=== PATIENT | male | born 1980 | race African-American/Black ===

== ENCOUNTER 2025-03-18 18:44 | Emergency (ER) | payer OTHER ==
[~2025-03-18] VITALS: Ht 188 cm; Wt 102.5 kg
[2025-03-18] MEDS ORDERED: KETOROLAC TROMETHAMINE 15 MG/ML VIAL ONE (18:56)
[2025-03-18] MEDS: IV NS 0.9% 1,000 ML BAG IV ONE (19:07)
[2025-03-18] MEDS: KETOROLAC TROMETHAMINE 15 MG/ML VIAL IV ONE (19:08)
[2025-03-18] MEDS ORDERED: ACETAMINOPHEN ES 500 MG TABLET ONE (19:27)
[2025-03-18 19:40] LABS: PLATELET COUNT (AUTO) 272 K/uL (150-450); RED BLOOD CELL COUNT(AUTO) 4.44 MIL/uL (4.5-6.0); RED CELL DISTRIBUTION WIDTH 14.8 % (11.5-15.0); WHITE BLOOD COUNT (AUTO) 10.3 K/uL (4.3-11.0)
[2025-03-18] MEDS: ACETAMINOPHEN ES 500 MG TABLET PO ONE (19:55)
[2025-03-18 19:56] LABS: CALCIUM, SERUM 8.6 mg/dL (8.5-10.1); CREATININE 1.1 mg/dL (0.6-1.3); SODIUM SERUM 141.0 mmol/L (136-145); UREA NITROGEN, BLOOD 10.0 mg/dL (7-18)
[2025-03-18 20:02] LABS: ALCOHOL, BLOOD 22.0 mg/dL (0-10); ASPARTATE AMINOTRANSFERASE 53.0 U/L (15-37); TOTAL PROTEIN, SERUM 6.9 g/dL (6.4-8.2)
[2025-03-18] MEDS ORDERED: ONDANSETRON HCL/PF 4 MG/2 ML VIAL ONE (20:30)
[2025-03-18] MEDS ORDERED: MORPHINE SULFATE INJ 4 MG/ML DISP.SYRIN ONE (20:30)
[2025-03-18] MEDS: ONDANSETRON HCL/PF 4 MG/2 ML VIAL IVP ONE (20:31)
[2025-03-18] MEDS: MORPHINE SULFATE INJ 2 MG/ML DISP.SYRIN IV ONE (20:31)
[2025-03-18 20:55] VITALS: BP 122/78; TEMP 99; O2SAT 95
== END 2025-03-18 20:56 | disposition home or self-care (01) ==
LOC: ER 18:44
DX: S30.0XXA Contusion of lower back and pelvis, initial encounter (principal); J11.1 Influenza due to unidentified influenza virus with other respiratory manifestations; Z20.822 Contact with and (suspected) exposure to COVID-19; X58.XXXA Exposure to other specified factors, initial encounter; Y93.89 Activity, other specified; Y92.89 Other specified places as the place of occurrence of the external cause; Y99.8 Other external cause status
CPT/HCPCS: 99285; 96374; 96361; 96375; 93005; 87804 ×2; 71045; 85025; 80048; 80076; 36415; 87426; 80320; J2270; J2405; J7030; J1885; G0480

== ENCOUNTER 2025-07-04 12:37 | Emergency (ER) | payer OTHER ==
[~2025-07-04] VITALS: Ht 188 cm; Wt 99.8 kg
[2025-07-04] MEDS ORDERED: ONDANSETRON HCL/PF 4 MG/2 ML VIAL ONE (13:03)
[2025-07-04] MEDS ORDERED: MORPHINE SULFATE INJ 4 MG/ML DISP.SYRIN ONE (13:04)
[2025-07-04] MEDS: IV NS 0.9% 500 ML BAG IV ONE (13:10)
[2025-07-04] MEDS: MORPHINE SULFATE INJ 2 MG/ML DISP.SYRIN IV ONE (13:11)
[2025-07-04] MEDS: ONDANSETRON HCL/PF 4 MG/2 ML VIAL IVP ONE (13:11)
[2025-07-04 13:26] LABS: CALCIUM, SERUM 9.2 mg/dL (8.5-10.1); CREATININE 1.2 mg/dL (0.6-1.3); SODIUM SERUM 137 mmol/L (136-145); UREA NITROGEN, BLOOD 15 mg/dL (7-18)
[2025-07-04 13:38] LABS: RED BLOOD CELL COUNT(AUTO) 5.27 MIL/uL (4.5-6.0); RED CELL DISTRIBUTION WIDTH 14.9 % (11.5-15.0); WHITE BLOOD COUNT (AUTO) 6.1 K/uL (4.3-11.0)
[2025-07-04 13:39] LABS: PLATELET COUNT (AUTO) 175 K/uL (150-450)
[2025-07-04] MEDS ORDERED: IOHEXOL-350 100 ML VIAL IV ONE (14:29)
[2025-07-04] MEDS ORDERED: IV NS 0.9% 250 ML IV ONE (14:29)
[2025-07-04] MEDS ORDERED: KETOROLAC TROMETHAMINE INJ 30 MG/ML VIAL ONE (15:08)
[2025-07-04] MEDS: KETOROLAC TROMETHAMINE INJ 30 MG/ML VIAL IV ONE (15:12)
[2025-07-04] MEDS ORDERED: KETO10TA2 PO (16:20)
[2025-07-04 16:57] VITALS: BP 128/78; TEMP 97.8; O2SAT 100
== END 2025-07-04 16:40 | disposition home or self-care (01) ==
LOC: ER 12:40
DX: R07.89 Other chest pain (principal); I11.9 Hypertensive heart disease without heart failure; G89.29 Other chronic pain; M54.9 Dorsalgia, unspecified
CPT/HCPCS: 99285; 96374; 71275; 96375; 71045; 93005; 85025; 80048; 36415; 84484 ×2; 85027; 85007; J1885; J2270; J2405; J7030; J7050; Q9967